=== PATIENT | male | born 1975 | race Caucasian/White ===

== ENCOUNTER 2017-02-08 18:49 | Inpatient (IN) | payer OTHER ==
[~2017-02-08] VITALS: Ht 172.7 cm; Wt 140.0 kg
[2017-02-08] MEDS ORDERED: SODIUM CHLORIDE 0.9% 1L BAG IV* STA (19:03)
[2017-02-08] MEDS ORDERED: ACETAMINOPHEN 325 MG TAB PO STA (19:03)
[2017-02-08] MEDS ORDERED: CEFEPIME 2GM/50 ML (PMX) 50 ML IVPB STA (19:03)
[2017-02-08] MEDS ORDERED: VANCOMYCIN 1 GM (PMX) 250 ML IVPB ONE (19:30)
[2017-02-08 19:46] LABS: ABNORMAL IP MESSAGE 1; HEMATOCRIT 40.5 % (42.0-52.0); HEMOGLOBIN 12.6 g/dl (14.0-18.0); MEAN CORPUSCULAR HEMOGLOBIN 25.6 pg (29.0-33.0); MEAN CORPUSCULAR HGB CONC 31.1 g/dl (32.0-37.0); MEAN CORPUSCULAR VOLUME 82.2 fl (82.0-101.0); MEAN PLATELET VOLUME 10.6 fl (7.4-10.4); PLATELET COUNT 139 10^3/UL (140-415); POSITIVE DIFF @See below; RED BLOOD COUNT 4.93 10^6/ul (4.70-6.10); RED CELL DISTRIBUTION WIDTH 17.5 % (11.5-14.5); WHITE BLOOD COUNT 11.3 10^3/ul (4.8-10.8)
[2017-02-08 20:03] LABS: ADD UMIC YES; UR ASCORBIC ACID NEGATIVE (NEGATIVE); UR BACTERIA FEW /HPF (NONE SEEN); UR BILIRUBIN (Dip) NEGATIVE (NEGATIVE); UR BLOOD (Dip) 3+ mg/dL (NEGATIVE); UR CLARITY CLOUDY (CLEAR); UR COLOR YELLOW (YELLOW); UR GLUCOSE (Dip) NEGATIVE (NEGATIVE); UR KETONES (Dip) NEGATIVE (NEGATIVE); UR LEUKOCYTE ESTERASE (Dip) 3+ Leu/ul (NEGATIVE); UR NITRITE (Dip) NEGATIVE (NEGATIVE); UR RBC 8 /HPF (0-5); UR SPECIFIC GRAVITY (Dip) 1.008 (1.003-1.030); UR TOTAL PROTEIN (Dip) 1+ mg/dl (NEGATIVE); UR UROBILINOGEN (Dip) NEGATIVE (NEGATIVE)
[2017-02-08 20:09] LABS: INR 1.2; PROTIME 15.3 Sec (12.2-14.2); PT RATIO 1.2
--- NOTE | 2017-02-08 20:09 | RADRPT ---
PROCEDURE: XR Chest. CLINICAL INDICATION: Sepsis TECHNIQUE: Anterior chest x-ray. COMPARISON: None. FINDINGS: The lungs are clear. No pleural effusion identified. There is no evidence of pneumothorax. The cardiomediastinal silhouette is unremarkable. The soft tissues are normal. Osseous structures are unremarkable. IMPRESSION: 1. No acute disease is seen in the chest. RPTAT: HLDM .Too Yoder MD, MD Date Time Electronically viewed and signed by .Too Yoder MD, on 02/08/2017 20:09 .M/
[2017-02-08 20:10] LABS: PARTIAL THROMBOPLASTIN TIME 33.2 Sec (25.0-35.0)
[2017-02-08 20:12] LABS: ALBUMIN 3.5 g/dl (3.3-4.9); ALBUMIN/GLOBULIN RATIO 1.12; BILIRUBIN,INDIRECT 0.5 mg/dl (0-1.1); BILIRUBIN,TOTAL 0.5 mg/dl (0.2-1.3); CALCIUM 8.6 mg/dl (8.4-10.2); CREATININE 1.41 mg/dl (0.61-1.24); POTASSIUM 4.4 mmol/L (3.5-5.1); TOTAL PROTEIN 6.6 g/dl (6.1-8.1)
[2017-02-08 20:23] LABS: TROPONIN-I 0.029 ng/ml (0.00-0.12)
[2017-02-08 20:24] LABS: EOSINOPHILS % (M) 3 % (0-7); MONOCYTES % (M) 2 % (0-11); PLATELET ESTIMATE NORMAL
[2017-02-08] MEDS ORDERED: IBUPROFEN 800 MG TAB PO ONE (21:00)
[2017-02-08] MEDS ORDERED: ONDANSETRON 4 MG INJ IV PRN ×2 (21:30→22:30)
[2017-02-08] MEDS ORDERED: ACETAMINOPHEN 325 MG TAB PO PRN (21:30)
--- NOTE | 2017-02-08 21:30 | ERA ---
ER Documentation Chief Complaint Date/Time DATE: 02/08/17 TIME: 21:27 Chief Complaint weakness and shivers x today HPI Patient is a 42-year-old male with psoriasis and gout who presents with fever. He was brought in by ambulance. He tried ibuprofen and TheraFlu. His symptoms started yesterday. He had severe chills. He denies any cough. He has no urinary symptoms. Upon review of old medical records this is the patient's first visit to the emergency department. He does not currently have a primary doctor. He is currently living at a group home house. ROS All systems reviewed and are negative except as per history of present illness. Allergies Allergies: Coded Allergies: No Known Allergy (Unverified , 02/08/17) FmHx Family History: diabetes Physical Exam Vitals Vital Signs Date Time Temp Pulse Resp B/P Pulse Ox O2 Delivery O2 Flow Rate FiO2 02/08/17 20:45 101.1 115 20 105/54 95 Room Air 02/08/17 20:11 102.1 124 25 97/55 96 Room Air 02/08/17 18:59 104.8 164 19 113/56 100 Physical Exam Const: Moderate distress Head: Atraumatic Eyes: Normal Conjunctiva ENT: Normal External Ears, Nose and Mouth. Neck: Full range of motion..~ No meningismus. Resp: Clear to auscultation bilaterally Cardio: Tachycardic rate without murmur Abd: Soft, non tender, non distended. Normal bowel sounds Skin: No petechiae or rashes Back: No midline or flank tenderness Ext: No cyanosis, or edema Neur: Awake and alert, generalized weakness Psych: Normal Mood and Affect Result Diagram: 02/08/17192402/08/171924 Results 24 hrs Laboratory Tests Test 02/08/17 19:20 02/08/17 19:25 Urine Color YELLOW Urine Clarity CLOUDY Urine pH 5.0 Urine Specific Peggs 1.008 Urine Ketones NEGATIVEmg/dL Urine Nitrite NEGATIVEmg/dL Urine Bilirubin NEGATIVEmg/dL Urine Urobilinogen NEGATIVEmg/dL Urine Leukocyte Esterase 3+Rita/ul Urine Microscopic RBC 8/HPF Urine Microscopic WBC > 182/HPF Urine Bacteria FEW/HPF Urine Hemoglobin 3+mg/dL Urine Glucose NEGATIVEmg/dL Urine Total Protein 1+mg/dl White Blood Count 11.310^3/ul Red Blood Count 4.9310^6/ul Hemoglobin 12.6g/dl Hematocrit 40.5% Mean Corpuscular Volume 82.2fl Mean Corpuscular Hemoglobin 25.6pg Mean Corpuscular Hemoglobin Concent 31.1g/dl Red Cell Distribution Width 17.5% Platelet Count 64410^3/UL Mean Platelet Volume 10.6fl Segmented Neutrophils % (Manual) 94% Lymphocytes % (Manual) 1% Monocytes % (Manual) 2% Eosinophils % (Manual) 3% Nucleated Red Blood Cells % 0.0/100WBC Absolute Lymphocytes (Manual) 0.110^3/ul Absolute Monocytes (Manual) 0.210^3/ul Smudge Cells % 69% Platelet Estimate NORMAL Prothrombin Time 15.3Sec Prothrombin Time Ratio 1.2 INR International Normalized Ratio 1.20 Activated Partial Thromboplast Time 33.2Sec Sodium Level 140mmol/L Potassium Level 4.4mmol/L Chloride Level 102mmol/L Carbon Dioxide Level 24mmol/L Anion Gap 18 Blood Urea Nitrogen 26mg/dl Creatinine 1.41mg/dl Glucose Level 94mg/dl Lactic Acid Level 4.4mmol/L Calcium Level 8.6mg/dl Total Bilirubin 0.5mg/dl Direct Bilirubin 0.00mg/dl Indirect Bilirubin 0.5mg/dl Aspartate Amino Transf (AST/SGOT) 25IU/L Alanine Aminotransferase (ALT/SGPT) 60IU/L Alkaline Phosphatase 77IU/L Troponin I 0.029ng/ml Total Protein 6.6g/dl Albumin 3.5g/dl Globulin 3.10g/dl Albumin/Globulin Ratio 1.12 Current Medications Medications (Trade) Dose Ordered Sig/Ashlee Route PRN Reason Start Time Stop Time Status Last Admin Dose Admin Sodium Chloride (NS) 4,340 ml BOLUS OVER 2 HOURS STAT IV* 02/08/17 19:03 02/08/17 19:05 DC 02/08/17 19:31 Acetaminophen 650 mg 650 mg ONCE STAT PO 02/08/17 19:03 02/08/17 19:05 DC 02/08/17 19:20 Cefepime HCl 50 ml @ 100 mls/hr ONCE STAT IVPB 02/08/17 19:03 02/08/17 19:32 DC 02/08/17 19:31 Vancomycin HCl (Vancocin) 250 ml @ 125 mls/hr ONCE ONCE IVPB 02/08/17 19:30 7/29/17 21:29 02/08/17 20:19 Ibuprofen (Motrin) 800 mg ONCE ONCE PO 02/08/17 21:00 02/08/17 21:01 DC 02/08/17 20:47 Ondansetron HCl (Zofran Inj) 4 mg ER BRIDGE PRN IV NAUSEA AND/OR VOMITING 02/08/17 21:30 02/09/17 21:29 Acetaminophen (Tylenol Tab) 650 mg ER BRIDGE PRN PO MILD PAIN/FEVER 02/08/17 21:30 02/09/17 21:29 Procedures/MDM EKG read by me: Rate/Rhythm: Sinus tachycardia Intervals: Normal Impression: Sinus tachycardia without ischemia Chest x-ray shows no obvious pneumonia per radiology. Admit MDM: Patient's infectious symptoms have not stabilized and the patient is at risk of rapid decompensation. The patient will be admitted for careful hydration, antibiotic therapy, and infectious source control. Severe Sepsis criteria: Infectious source: Pyelonephritis End organ damage indicated by: Lactate greater than 2 Sepsis Management: Time of recognition of sepsis: Upon arrival Within 3 hours of recognition: Blood cultures x 2 before broad-spectrum antibiotics: Yes 30 ml/kg NS bolus Completed Initial lactate 4.4 Repeat lactate pending Time of recognition of septic shock: 1924 Septic Shock Assessment: Any lactic acid > 4.0 yes Persistent hypotension (SBP < 90 or 40 mmHg drop, MAP < 65) despite 30 mL/kg IV fluid bolus No Volume Re-assessment for Septic Shock (post 30 ml/kg bolus): Temp 101.1, BP 105/54, HR 115, RR 20, Pox 95% Heart tachycardic rate Lungs No crackles Skin Warm & dry Cap Refill Less than 2 seconds Peripheral pulses Radially present Persistent Hypotension Treatment: Comfort care No Central line Not Required Vasopressor started Not required I considered further perfusion assessment with CVP measurement, SCVO2, bedside ultrasound volume assessment, passive leg raise, trial of further fluid bolus. And proceeded with 30 ml/kg fluid bolus of NSS, broad spectrum antibiotics, and admission. Accepting Care Team Current data and ongoing care discussed. Admitting Physician: Dr. Espinoza as the patient has [facility] insurance loss assessor(s): None Outstanding Data: Culture results and repeat lactic acid Critical Care: Critical care time 35 minutes excluding all billable procedures Emergent fluid management while maintaining close respiratory support. Provision of immediate and broad-spectrum antibiotic therapy. Simultaneous assessment for possible sources in order to direct targeted therapy. Consideration for invasive and chemical support to prevent cardiopulmonary collapse. Departure Diagnosis: Primary Impression: Septic shock Additional Impressions: Acute weakness Pyelonephritis Condition: Serious JANET IZAGUIRRE MD Feb 08, 2017 21:30
[2017-02-08 22:04] VITALS: TEMP 99
[2017-02-08] MEDS ORDERED: ACETAMINOPHEN 650 MG SUPP PR PRN (22:30)
[2017-02-08] MEDS ORDERED: BISACODYL (EC) 5 MG TAB PO PRN (22:30)
[2017-02-08] MEDS ORDERED: MAGNESIUM HYDROXIDE 30ML CUP PO PRN (22:30)
[2017-02-08] MEDS ORDERED: NACL 0.9% 3 ML SYG IV SCH (22:30)
[2017-02-08] MEDS ORDERED: DOCUSATE SODIUM 100 MG CAP PO PRN (22:30)
[2017-02-08 22:35] VITALS: BP 110/70; PULSE 107; RESP 20; Ht 172.7 cm; Wt 140.0 kg
[2017-02-08 23:59] VITALS: BP 100/71; RESP 19
[2017-02-09] VITALS (12 sets, daily range): BP systolic 108–170; BP diastolic 60–90; PULSE 80–109; RESP 16–19
[2017-02-09] MEDS: PIPER-TAZO 3.375 GM IV (PMX) 100 ML IVPB SCH ×4 (05:47→21:08)
[2017-02-09] MEDS: HYDROCODONE/APAP (5/325) TAB PO PRN ×3 (05:47→21:09)
[2017-02-09] MEDS: NS + KCL 20 MEQ 1,000 ML IV SCH ×4 (06:49→23:18)
[2017-02-09] MEDS: PANTOPRAZOLE 40 MG INJ IV SCH (08:34)
[2017-02-09] MEDS: ACETAMINOPHEN 325 MG TAB PO PRN ×2 (08:34→17:34)
--- NOTE | 2017-02-09 10:25 | HP ---
Date/Time of Note Date/Time of Note DATE: 02/09/17 TIME: 10:15 Assessment/Plan VTE Prophylaxis VTE Prophylaxis Intervention: SCD's Lines/Catheters IV Catheter Type (from Nrsg): Peripheral IV Assessment/Plan Chief Complaint/Hosp Course 1. Sepsis 2. Possible viral gastroenteritis. 3. UTI 4. Gout 5. Psoriasis 4. Psoriatic gout 5. Morbid obesity 6. Hypertension, uncontrolled 7. Anxiety 8. Hx nicotine dependence Problems: Assessment/Plan 1. Continue IV fluids and A/b 2. ID consult dr Frost 3. Clear liquid diet 4. Pain control 5. Start on antianxiety meds HPI/ROS Admit Date/Time Admit Date/Time Feb 08, 2017 at 21:14 Hx of Present Illness 42-year-old male was brought to ER on 02/08/17 by ambulance. He had symptoms of diarrhea, chills and fever for 2 days. He tried ibuprofen and TheraFlu. Pt is recently released from senior care and currently living at a [facility] house. ROS Constitutional: chills, febrile ENT: no complaints Respiratory: cough, no complaints, other, pain, pleuritic pain, shortness of breath, sputum, wheezing Cardiovascular: chest pain, edema, lightheadedness, palpitations, No no complaints, No orthopenea, No other, No paroxysmal nocturnal dyspnea Gastrointestinal: blood, constipation, decreased appetite, diarrhea, flatus, nausea, no complaints, other, pain, passing stool, vomiting Genitourinary: discharge, dysuria, flank pain, No bleeding, No hematuria, No no complaints, No other Musculoskeletal: back pain, bone/joint pain, neck pain, no complaints, other, restricted range of motion (chronic), swelling Skin: rash (due to psoriasis) Neurologic: confusion, dizziness, focal-weakness, headache, no complaints, other, seizure, syncope Endocrine: polyuria, No dry skin, No no complaints, No other, No polydypsia, No temp intolerance, No weight change Lymphatic: adenopathy, No lymphadema, No no complaints, No other, No tender nodes Psychological: anxiety, No depression, No nl mood/affect, No no complaints, No other, No suicidal Immunologic: immunodeficiency, no complaints, other, pruritis, rhinitis, urticaria PMH/Family/Social Past Medical History reports Psoriasis, Gout, and associated arthritis Past Surgical History Past Surgical Hx: no surgical history Family History Significant Family History: other (gout both maternal and praternal grandparents) Social History Alcohol Use: none Smoking Status: Former smoker Drug Use: none Exam/Review of Systems Vital Signs Vitals Vital Signs Date Time Temp Pulse Resp B/P Pulse Ox O2 Delivery O2 Flow Rate FiO2 02/09/17 08:38 101.8 108 18 170/80 93 159/81 02/08/17 22:35 Room Air Intake and Output 02/08/17 02/08/17 02/09/17 15:00 23:00 07:00 Intake Total 600 ml Output Total 700 ml Balance -100 ml Exam Constitutional: alert, distress, oriented Psych: anxiety Head: atraumatic, normocephalic Eyes: EOMI, nl conjunctiva ENMT: nl external ears & nose, nl nasal mucosa & septum Neck: non-tender, supple Respiratory: clear to auscultation Cardiovascular: other (tachycardia), regular rate and rhythm Gastrointestinal: distended, other, rebound or guarding, soft Genitourinary - Male: nl penis, nl scrotum Musculoskeletal: muscle weakness, range of motion (decreased both hips and knees) Extremities: normal pulses Neurological: DERMATOLOGY TECHNICIAN II-XII intact Skin: other (psoriasis ) Labs Result Diagram: 02/08/17192402/08/171924 Medications Medications Current Medications Potassium Chloride/Sodium Chloride (NS-KCl 20 Meq) 1,000 ml @ 125 mls/hr Q8H IV Last administered on 02/09/17 06:49; Admin Dose 125 MLS/HR; Start 02/08/17 at 22:25 Ondansetron HCl (Zofran Inj) 4 mg Q6H PRN IV NAUSEA AND/OR VOMITING; Start at 22:30 Acetaminophen (Tylenol Tab) 650 mg Q6H PRN PO PAIN LEVEL 1-3 OR FEVER Last administered on 02/09/17 08:34; Admin Dose 650 MG; Start 02/08/17 at 22:30 Acetaminophen (Tylenol Supp) 650 mg Q6H PRN [place] PAIN LEVEL 1-3 OR FEVER; Start 02/08/17 at 22:30 Acetaminophen/ Hydrocodone Bitart ([place] (5/325)) 1 tab Q6H PRN PO MODERATE PAIN LEVEL 4-6 Last administered on 02/09/17 05:47; Admin Dose 1 TAB; Start at 22:30 Docusate Sodium (Colace) 100 mg Q12H PRN PO CONSTIPATION; Start 02/08/17 at 22: 30 Magnesium Hydroxide (Milk Of Mag) 30 ml DAILY PRN PO CONSTIPATION; Start at 22:30 Bisacodyl (Dulcolax) 5 mg DAILY PRN PO CONSTIPATION; Start 02/08/17 at 22:30 Pantoprazole 40 mg 40 mg DAILY IV Last administered on 02/09/17 08:34; Admin Dose 40 MG; Start 02/09/17 at 09:00 Piperacillin Sod/ Tazobactam Sod (Zosyn 3.375gm/ 100 ml (Pmx)) 100 ml @ 200 mls /hr Q8 IVPB Last administered on 02/09/17 05:47; Admin Dose 200 MLS/HR; Start 02/08/17 at 23:00 MARLINE FIELDS Feb 09, 2017 10:25
[2017-02-09] MEDS: FLUOXETINE 10 MG CAP PO SCH (11:30)
[2017-02-10] VITALS (11 sets, daily range): BP systolic 111–158; BP diastolic 55–87; PULSE 61–86; RESP 19–20
[2017-02-10] MEDS: ACETAMINOPHEN 325 MG TAB PO PRN (02:06)
[2017-02-10] MEDS: HYDROCODONE/APAP (5/325) TAB PO PRN ×3 (03:09→23:22)
[2017-02-10] MEDS: PIPER-TAZO 3.375 GM IV (PMX) 100 ML IVPB SCH ×3 (06:06→21:57)
[2017-02-10] MEDS: NS + KCL 20 MEQ 1,000 ML IV SCH ×3 (06:07→23:22)
[2017-02-10 07:35] LABS: ABNORMAL IP MESSAGE 1; BASOPHILS % 0.3 % (0.0-2.0); EOSINOPHILS % 0.3 % (0.0-7.0); HEMATOCRIT 35.3 % (42.0-52.0); LYMPHOCYTES # 0.6 10^3/ul (0.8-2.9); LYMPHOCYTES % 8.7 % (15.0-51.0); MEAN CORPUSCULAR HEMOGLOBIN 25.3 pg (29.0-33.0); MEAN CORPUSCULAR HGB CONC 31.2 g/dl (32.0-37.0); MEAN CORPUSCULAR VOLUME 81.3 fl (82.0-101.0); MEAN PLATELET VOLUME 11.4 fl (7.4-10.4); MONOCYTE # 0.5 10^3/ul (0.3-0.9); MONOCYTES % 7.3 % (0.0-11.0); NEUTROPHIL # 5.4 10^3/ul (1.6-7.5); NEUTROPHILS % 82.3 % (39.0-77.0); PLATELET COUNT 108 10^3/UL (140-415); POSITIVE DIFF @See below; RED BLOOD COUNT 4.34 10^6/ul (4.70-6.10); RED CELL DISTRIBUTION WIDTH 17.2 % (11.5-14.5); WHITE BLOOD COUNT 6.6 10^3/ul (4.8-10.8)
[2017-02-10 07:55] LABS: CALCIUM 8.4 mg/dl (8.4-10.2); CREATININE 1.15 mg/dl (0.61-1.24); POTASSIUM 4.7 mmol/L (3.5-5.1)
[2017-02-10] MEDS: FLUOXETINE 10 MG CAP PO SCH (09:06)
[2017-02-10] MEDS: PANTOPRAZOLE 40 MG INJ IV SCH (09:06)
--- NOTE | 2017-02-10 10:42 | CONS ---
DATE OF ADMISSION: 02/08/2017 DATE OF CONSULTATION: 02/09/2017 REASON FOR CONSULTATION: Antibiotic management. HISTORY OF PRESENT ILLNESS: Cristobal Laureano is a 42-year-old male who comes to the emergency room on 02/08/2017 with symptoms of diarrhea, chills and fever for 2 days. He was taking ibuprofen and TheraFlu, and was recently released from sn[facility] and living in a assisted house. PAST MEDICAL HISTORY: 1. Gout. 2. Psoriasis. 3. Morbid obesity. 4. Hypertension. 5. Anxiety. 6. Nicotine dependence. LABORATORY: On admission, his white count was 11.3, hemoglobin and hematocrit of 12.6 and 40.5, platelet count 139,000. BUN/creatinine 26/1.4. Urine culture shows gram-negative rods from 02/08/2017. Urine showed 3+ leukocyte esterase and greater than 182 white cells per high-powered field. Patient is currently on Zosyn and was on cefepime. Chest x-ray; no acute disease seen in the chest. PAST SURGICAL HISTORY: Operations as outlined. FAMILY HISTORY: Noncontributory. SOCIAL HISTORY: He does not smoke, drink, or abuse drugs. ALLERGIES: NONE TO PENICILLIN, SULFA, OR FOODS. MEDICATION: Per chart. REVIEW OF SYSTEMS: As per HPI. The patient was a former smoker. PHYSICAL EXAMINATION: SKIN: The skin has areas of psoriasis. HEENT: Within normal limits. NECK: Supple. Lymph nodes nonpalpable. CHEST: Decreased breath sounds at the bases. HEART: Tachycardic, regular rhythm. ABDOMEN: Soft, distended, nontender, without hepatosplenomegaly or masses. EXTREMITIES: Decreased range of motion in both hips and knees. RECTAL/GENITAL: Deferred. NEUROLOGICAL: No focal neurological abnormalities. IMPRESSION: The patient presents now with what appears to be sepsis. He has gram-negative rods in his urine. He is going to be continued on the Zosyn until we get reports back to tailor his antibiotic therapy. I will dictate my findings to the hospitalist. Dictated By: Artemio Frost MD JD/wes/antonio /Document#: [id number]
--- NOTE | 2017-02-10 17:33 | PN ---
Date/Time of Note Date/Time of Note DATE: 02/10/17 TIME: 17:31 Assessment/Plan VTE Prophylaxis VTE Prophylaxis Intervention: other Lines/Catheters IV Catheter Type (from Nrsg): Peripheral IV Assessment/Plan Chief Complaint/Hosp Course A/P SEPSIS UTI HEADACHE ANEMIA PLAN ANTIBIOTIC Problems: Subjective 24 Hr Interval Summary Subjective hx not possible: other (HEADACHE+) Cardiovascular: no complaints Gastrointestinal: no complaints Exam/Review of Systems Vital Signs Vitals Vital Signs Date Time Temp Pulse Resp B/P Pulse Ox O2 Delivery O2 Flow Rate FiO2 02/10/17 16:10 61 02/10/17 15:27 99.7 20 111/55 98 02/08/17 22:35 Room Air Intake and Output 02/09/17 02/09/17 02/10/17 15:00 23:00 07:00 Intake Total 1400 ml 1000 ml Balance 1400 ml 1000 ml Exam ENMT: nl external ears & nose Neck: supple Respiratory: clear to auscultation Cardiovascular: regular rate and rhythm Gastrointestinal: soft Musculoskeletal: nl extremities to inspection Extremities: normal pulses Results Result Diagram: 02/10/17 0657 02/10/17 0657 Results 24 hrs Laboratory Tests Test 02/10/17 06:57 02/10/17 10:00 White Blood Count 6.6 # Red Blood Count 4.34 L Hemoglobin 11.0 L Hematocrit 35.3 L Mean Corpuscular Volume 81.3 L Mean Corpuscular Hemoglobin 25.3 L Mean Corpuscular Hemoglobin Concent 31.2 L Red Cell Distribution Width 17.2 H Platelet Count 108 #L Mean Platelet Volume 11.4 H Neutrophils % 82.3 H Lymphocytes % 8.7 L Monocytes % 7.3 Eosinophils % 0.3 Basophils % 0.3 Nucleated Red Blood Cells % 0.0 Neutrophils # 5.4 Lymphocytes # 0.6 L Monocytes # 0.5 Eosinophils # 0.0 Basophils # 0.0 Nucleated Red Blood Cells # 0.0 Sodium Level 136 Potassium Level 4.7 Chloride Level 101 Carbon Dioxide Level 25 Anion Gap 15 Blood Urea Nitrogen 12 # Creatinine 1.15 Glucose Level 115 Calcium Level 8.4 TB Skin Test Induration Pending TB Skin Test Administer Date 7300720 TB Skin Test Administer Time 0950 TB Skin Test Injection Site Left Lower Forearm Medications Medications Current Medications Potassium Chloride/Sodium Chloride (NS-KCl 20 Meq) 1,000 ml @ 125 mls/hr Q8H IV Last administered on 02/10/17 16:28; Admin Dose 125 MLS/HR; Start 02/08/17 at 22:25 Ondansetron HCl (Zofran Inj) 4 mg Q6H PRN IV NAUSEA AND/OR VOMITING; Start at 22:30 Acetaminophen (Tylenol Tab) 650 mg Q6H PRN PO PAIN LEVEL 1-3 OR FEVER Last administered on 02/10/17 02:06; Admin Dose 650 MG; Start 02/08/17 at 22:30 Acetaminophen (Tylenol Supp) 650 mg Q6H PRN [place] PAIN LEVEL 1-3 OR FEVER; Start 02/08/17 at 22:30 Acetaminophen/ Hydrocodone Bitart ([place] (5/325)) 1 tab Q6H PRN PO MODERATE PAIN LEVEL 4-6 Last administered on 02/10/17 13:46; Admin Dose 1 TAB; Start at 22:30 Docusate Sodium (Colace) 100 mg Q12H PRN PO CONSTIPATION; Start 02/08/17 at 22: 30 Magnesium Hydroxide (Milk Of Mag) 30 ml DAILY PRN PO CONSTIPATION; Start at 22:30 Bisacodyl (Dulcolax) 5 mg DAILY PRN PO CONSTIPATION; Start 02/08/17 at 22:30 Pantoprazole 40 mg 40 mg DAILY IV Last administered on 02/10/17 09:06; Admin Dose 40 MG; Start 02/09/17 at 09:00 Piperacillin Sod/ Tazobactam Sod (Zosyn 3.375gm/ 100 ml (Pmx)) 100 ml @ 200 mls /hr Q8 IVPB Last administered on 02/10/17 14:47; Admin Dose 200 MLS/HR; Start 02/08/17 at 23:00 Fluoxetine HCl (Prozac) 10 mg DAILY PO Last administered on 02/10/17 09:06; Admin Dose 10 MG; Start 02/09/17 at 11:30 Hydralazine HCl (Apresoline) 10 mg Q8H PRN PO SBP above 160; Start 02/09/17 at 10:30 DINA VIDAL MD Feb 10, 2017 17:32
[2017-02-10] MEDS ORDERED: TOPIRAMATE 25 MG TAB PO ONE (18:30)
--- NOTE | 2017-02-10 20:03 | CONS ---
Date/Time of Note Date/Time of Note DATE: 02/10/17 TIME: 19:34 Assessment/Plan Assessment/Plan Chief Complaint/Hosp Course ID PROGRESS NOTE CURRENT ABX: DAY #2 =>Zosyn (started late PM 02/08) s/p Vanco IV + Cefepime x1 in ED late pm 02/08 24H INTERVAL SUMMARY * Feels better, headache today given Tylenol, fevers resolved, VSS * Still having diarrhea -- believes due to food he ate in [facility]itentiary * (+)GNR BCX=> (+)GNR Urosepsis * URINE CULTURE Final Organism 1 ESCHERICHIA COLI COLONY COUNT >100,000 CFU/ml E COLI M.I.C. RX --------- --- AMPICILLIN <=2 S CEFAZOLIN S CEFOTAXIME S CIPROFLOXACIN <=0.25 S GENTAMICIN <=1 S LEVOFLOXACIN <=0.12 S NITROFURANTOIN <=16 S TOBRAMYCIN <=1 S TRIMETHOPRIM/SULFAMETHOXAZOLE <=20 S Physical examination: 42 yo super morbid obese M, VSS, NAD HEENT: Unremarkable CHEST: Equal chest rise bilaterally without dyspnea on observation CV: Radial pulse RRR ABD: Obese body habitus makes exam difficult : Deferred EXT: Warm, no cyanosis SKIN: No diaphoresis, psoriatic rash areas = chronic ID ASSESSMENT 42 yo super morbid obese M admit with: 1. Acute GNR Sepsis w/fevers 104.8, leukocytosis, tachycardia @168, + lactic acidosis 4.4 => IMPROVING * Low grade temps, WBC normalized, VSS * 02/08 BCx (+)GNR -> Final ID still pending 2. Complicated GNR E.Coli UTI/Pyelonephritis -> spicer sensitive to all ABX 3. s/p acute gastroenteritis associated w/diarrhea prior to admission => still having loose stools and headache * He believes he ate something bad in penitentiary -> will check for hepatitis A and stool cultures, ova/para, C.Diff 4. HTN 5. Gout 6. Psoriasis 7. Hx nicotine dependence 8. Psych/social disorder NOS: (+)Anxiety, s/p recent incarceration (-)HIV/HCV/HBV during admission to incarceration facility 12 mos ago, w/(-)TB screening at that time CURRENT ABX: CURRENT ABX: DAY #2 =>Zosyn (started late PM 02/08) s/p Vanco IV + Cefepime x1 in ED late pm 02/08 ID RECOMMENDATIONS 1. Best to wait for final ID of the GNR growing in the Blood Cx prior to final ABX recommendations. 2. If GNR in BCx is also sensitive to Quinolones; then anticipate DC the patient on Levaquin 750mg po daily to complete 14 days coverage for (+)blood cx. * Indication for high-dose Levaquin is super morbid obesity; alternative high dose Cipro Q12 H 3. Patient may DC home on PO ABX as above when afebrile 48H and GNR BCx has been confirmed sensitive to Quinolone ABX. 4. He believes he ate something bad in penitentiary -> will check for hepatitis A and stool cultures, ova/para, C.Diff 5. POST INCARCERATION HIGH RISK POPULATION SCREENINGS FOR ID * PPD screening ordered/placed 02/10/17 for SCREENING for exposure to TB while in penitentiary ONLY. NO current evidence of TB. * If (+) recommend initiation for Latent TB prophy as OP * Patient gives permission to retest for HIV/HCV s/p penitentiary; however he denies sharing needles during penitentiary, no hx of IVDU, no sex in penitentiary, he is to same spouse, he has tattoos done in a professional shop. I advised him HIV/ HCV not likely if no risk in past 12 month since last screening...he tells me "It is best to test me for everything for peace of mind." Patient gives verbal consent to test for HIV. . Problems: Consultation Date/Type/Reason Admit Date/Time Feb 08, 2017 at 21:14 Initial Consult Date Exam/Review of Systems Vital Signs Vitals Vital Signs Date Time Temp Pulse Resp B/P Pulse Ox O2 Delivery O2 Flow Rate FiO2 02/10/17 16:10 61 02/10/17 15:27 99.7 20 111/55 98 02/08/17 22:35 Room Air Intake and Output 02/09/17 02/09/17 02/10/17 15:00 23:00 07:00 Intake Total 1400 ml 1000 ml Balance 1400 ml 1000 ml Results Result Diagram: 02/10/17 0657 02/10/17 0657 Results 24 hrs Laboratory Tests Test 02/10/17 06:57 02/10/17 10:00 White Blood Count 6.6 # Red Blood Count 4.34 L Hemoglobin 11.0 L Hematocrit 35.3 L Mean Corpuscular Volume 81.3 L Mean Corpuscular Hemoglobin 25.3 L Mean Corpuscular Hemoglobin Concent 31.2 L Red Cell Distribution Width 17.2 H Platelet Count 108 #L Mean Platelet Volume 11.4 H Neutrophils % 82.3 H Lymphocytes % 8.7 L Monocytes % 7.3 Eosinophils % 0.3 Basophils % 0.3 Nucleated Red Blood Cells % 0.0 Neutrophils # 5.4 Lymphocytes # 0.6 L Monocytes # 0.5 Eosinophils # 0.0 Basophils # 0.0 Nucleated Red Blood Cells # 0.0 Sodium Level 136 Potassium Level 4.7 Chloride Level 101 Carbon Dioxide Level 25 Anion Gap 15 Blood Urea Nitrogen 12 # Creatinine 1.15 Glucose Level 115 Calcium Level 8.4 TB Skin Test Induration Pending TB Skin Test Administer Date [id number] TB Skin Test Administer Time 0950 TB Skin Test Injection Site Left Lower Forearm Medications Medications Current Medications Potassium Chloride/Sodium Chloride (NS-KCl 20 Meq) 1,000 ml @ 125 mls/hr Q8H IV Last administered on 02/10/17 16:28; Admin Dose 125 MLS/HR; Start 02/08/17 at 22:25 Ondansetron HCl (Zofran Inj) 4 mg Q6H PRN IV NAUSEA AND/OR VOMITING; Start at 22:30 Acetaminophen (Tylenol Tab) 650 mg Q6H PRN PO PAIN LEVEL 1-3 OR FEVER Last administered on 02/10/17 02:06; Admin Dose 650 MG; Start 02/08/17 at 22:30 Acetaminophen (Tylenol Supp) 650 mg Q6H PRN [place] PAIN LEVEL 1-3 OR FEVER; Start 02/08/17 at 22:30 Acetaminophen/ Hydrocodone Bitart ([place] (5/325)) 1 tab Q6H PRN PO MODERATE PAIN LEVEL 4-6 Last administered on 02/10/17 13:46; Admin Dose 1 TAB; Start at 22:30 Docusate Sodium (Colace) 100 mg Q12H PRN PO CONSTIPATION; Start 02/08/17 at 22: 30 Magnesium Hydroxide (Milk Of Mag) 30 ml DAILY PRN PO CONSTIPATION; Start at 22:30 Bisacodyl (Dulcolax) 5 mg DAILY PRN PO CONSTIPATION; Start 02/08/17 at 22:30 Pantoprazole 40 mg 40 mg DAILY IV Last administered on 02/10/17 09:06; Admin Dose 40 MG; Start 02/09/17 at 09:00 Piperacillin Sod/ Tazobactam Sod (Zosyn 3.375gm/ 100 ml (Pmx)) 100 ml @ 200 mls /hr Q8 IVPB Last administered on 02/10/17 14:47; Admin Dose 200 MLS/HR; Start 02/08/17 at 23:00 Fluoxetine HCl (Prozac) 10 mg DAILY PO Last administered on 02/10/17 09:06; Admin Dose 10 MG; Start 02/09/17 at 11:30 Hydralazine HCl (Apresoline) 10 mg Q8H PRN PO SBP above 160; Start 02/09/17 at 10:30 WAN LARA NP Feb 10, 2017 19:44
[2017-02-11] VITALS (13 sets, daily range): BP systolic 121–198; BP diastolic 59–108; PULSE 58–86; RESP 16–20
[2017-02-11] MEDS: HYDROCODONE/APAP (5/325) TAB PO PRN ×2 (05:48→16:38)
[2017-02-11] MEDS: PIPER-TAZO 3.375 GM IV (PMX) 100 ML IVPB SCH ×3 (05:48→22:34)
[2017-02-11] MEDS: NS + KCL 20 MEQ 1,000 ML IV SCH ×3 (05:56→22:36)
[2017-02-11 08:11] LABS: HAAIG REFLEX REFLEX FILED
[2017-02-11 08:16] LABS: WHITE BLOOD COUNT 6.4 10^3/ul (4.8-10.8)
[2017-02-11 08:17] LABS: BASOPHILS % 0.2 % (0.0-2.0); EOSINOPHILS # 0.1 10^3/ul (0.0-0.5); EOSINOPHILS % 0.9 % (0.0-7.0); HEMATOCRIT 33.9 % (42.0-52.0); HEMOGLOBIN 10.6 g/dl (14.0-18.0); LYMPHOCYTES # 0.7 10^3/ul (0.8-2.9); MEAN CORPUSCULAR HEMOGLOBIN 24.9 pg (29.0-33.0); MEAN CORPUSCULAR HGB CONC 31.3 g/dl (32.0-37.0); MEAN CORPUSCULAR VOLUME 79.6 fl (82.0-101.0); MEAN PLATELET VOLUME 11.9 fl (7.4-10.4); MONOCYTE # 0.5 10^3/ul (0.3-0.9); MONOCYTES % 8.3 % (0.0-11.0); NEUTROPHILS % 78.7 % (39.0-77.0); PLATELET COUNT 137 10^3/UL (140-415); RED BLOOD COUNT 4.26 10^6/ul (4.70-6.10); RED CELL DISTRIBUTION WIDTH 17.2 % (11.5-14.5)
[2017-02-11] MEDS: FLUOXETINE 10 MG CAP PO SCH (08:48)
[2017-02-11] MEDS: PANTOPRAZOLE 40 MG INJ IV SCH (08:49)
[2017-02-11 09:26] LABS: HEPATITIS B CORE ANTIBODY NEGATIVE (NEGATIVE)
[2017-02-11] MEDS: NIFEdipine (XL) 60 MG TAB PO SCH (12:44)
--- NOTE | 2017-02-11 15:42 | CONS ---
Date/Time of Note Date/Time of Note DATE: 02/11/17 TIME: 15:24 Assessment/Plan Assessment/Plan Chief Complaint/Hosp Course ID PROGRESS NOTE CURRENT ABX: DAY #3 =>Zosyn (started late PM 02/08) s/p Vanco IV + Cefepime x1 in ED late pm 02/08 * 02/11/17 0723 02/10/17 0657 24H INTERVAL SUMMARY * Still w/subjective "warm" feeling (+)diaphoresis and headache with ice pack to head that helps. * "not feeling that great -- still feel weak" * Still having loose stools but less -- believes due to food he ate in shelter * (+)GNR BCX=> (+)GNR Urosepsis * URINE CULTURE Final Organism 1 ESCHERICHIA COLI COLONY COUNT >100,000 CFU/ml E COLI M.I.C. RX --------- --- AMPICILLIN <=2 S CEFAZOLIN S CEFOTAXIME S CIPROFLOXACIN <=0.25 S GENTAMICIN <=1 S LEVOFLOXACIN <=0.12 S NITROFURANTOIN <=16 S TOBRAMYCIN <=1 S TRIMETHOPRIM/SULFAMETHOXAZOLE <=20 S Physical examination: 42 yo super morbid obese M, VSS, NAD HEENT: Unremarkable CHEST: Equal chest rise bilaterally without dyspnea on observation CV: Radial pulse RRR ABD: Obese body habitus makes exam difficult : Deferred EXT: Warm, no cyanosis SKIN: No diaphoresis, psoriatic rash areas = chronic ID ASSESSMENT 42 yo super morbid obese M admit with: 1. Acute GNR Sepsis w/fevers 104.8, leukocytosis, tachycardia @168, + lactic acidosis 4.4 => IMPROVING * Low grade temps, WBC normalized, VSS * 02/08 BCx (+)GNR -> E.Coli sensitive to Quinolones 2. Complicated GNR E.Coli UTI/Pyelonephritis ->E.Coli sensitive to Quinolones 3. s/p acute gastroenteritis associated w/diarrhea prior to admission => still having loose stools and headache * He believes he ate something bad in shelter -> will check for hepatitis A and stool cultures, ova/para, C.Diff 4. HTN 5. Gout 6. Psoriasis 7. Hx nicotine dependence 8. Psych/social disorder NOS: (+)Anxiety, s/p recent incarceration (-)HIV/HCV/HBV 02/11/17 PPD screen placed 02/10 late pm CURRENT ABX: CURRENT ABX: DAY #3 =>Zosyn (started late PM 02/08) s/p Vanco IV + Cefepime x1 in ED late pm 02/08 ID RECOMMENDATIONS 1. Patient is improving on current ABX * When cleared for DC home, patient may DC home on high dose Levaquin 750mg po daily to complete 14 days = last day 02/23/16 2. Extensive bedside education today regarding "GNR Urosepsis" all questions answered...culture results provided to patient at his request, patient expresses understanding/agreement with instructions to complete full ABX course upon DC as prescribed. . . Problems: Consultation Date/Type/Reason Admit Date/Time Feb 08, 2017 at 21:14 Exam/Review of Systems Vital Signs Vitals Vital Signs Date Time Temp Pulse Resp B/P Pulse Ox O2 Delivery O2 Flow Rate FiO2 02/11/17 12:14 62 02/11/17 11:34 98.4 18 193/105 97 198/108 02/08/17 22:35 Room Air Intake and Output 02/10/17 02/10/17 02/11/17 15:00 23:00 07:00 Intake Total 1000 ml 600 ml Balance 1000 ml 600 ml Results Result Diagram: 02/11/17 0723 02/10/17 0657 Results 24 hrs Laboratory Tests Test 02/11/17 07:23 White Blood Count 6.4 Red Blood Count 4.26 L Hemoglobin 10.6 L Hematocrit 33.9 L Mean Corpuscular Volume 79.6 L Mean Corpuscular Hemoglobin 24.9 L Mean Corpuscular Hemoglobin Concent 31.3 L Red Cell Distribution Width 17.2 H Platelet Count 137 #L Mean Platelet Volume 11.9 H Neutrophils % 78.7 H Lymphocytes % 11.0 L Monocytes % 8.3 Eosinophils % 0.9 Basophils % 0.2 Nucleated Red Blood Cells % 0.0 Neutrophils # 5.0 Lymphocytes # 0.7 L Monocytes # 0.5 Eosinophils # 0.1 Basophils # 0.0 Nucleated Red Blood Cells # 0.0 Hepatitis B Surface Antigen NEGATIVE Hepatitis B Core Total Antibody NEGATIVE Hepatitis C Antibody NEGATIVE HIV (1&2) Antibody NEGATIVE Medications Medications Current Medications Potassium Chloride/Sodium Chloride (NS-KCl 20 Meq) 1,000 ml @ 125 mls/hr Q8H IV Last administered on 02/11/17 14:12; Admin Dose 125 MLS/HR; Start 02/08/17 at 22:25 Ondansetron HCl (Zofran Inj) 4 mg Q6H PRN IV NAUSEA AND/OR VOMITING; Start at 22:30 Acetaminophen (Tylenol Tab) 650 mg Q6H PRN PO PAIN LEVEL 1-3 OR FEVER Last administered on 02/10/17 02:06; Admin Dose 650 MG; Start 02/08/17 at 22:30 Acetaminophen (Tylenol Supp) 650 mg Q6H PRN [place] PAIN LEVEL 1-3 OR FEVER; Start 02/08/17 at 22:30 Acetaminophen/ Hydrocodone Bitart ([place] (5/325)) 1 tab Q6H PRN PO MODERATE PAIN LEVEL 4-6 Last administered on 02/11/17 05:48; Admin Dose 1 TAB; Start at 22:30 Docusate Sodium (Colace) 100 mg Q12H PRN PO CONSTIPATION; Start 02/08/17 at 22: 30 Magnesium Hydroxide (Milk Of Mag) 30 ml DAILY PRN PO CONSTIPATION; Start at 22:30 Bisacodyl (Dulcolax) 5 mg DAILY PRN PO CONSTIPATION; Start 02/08/17 at 22:30 Pantoprazole 40 mg 40 mg DAILY IV Last administered on 02/11/17 08:49; Admin Dose 40 MG; Start 02/09/17 at 09:00 Piperacillin Sod/ Tazobactam Sod (Zosyn 3.375gm/ 100 ml (Pmx)) 100 ml @ 200 mls /hr Q8 IVPB Last administered on 02/11/17 12:44; Admin Dose 200 MLS/HR; Start 02/08/17 at 23:00 Fluoxetine HCl (Prozac) 10 mg DAILY PO Last administered on 02/11/17 08:48; Admin Dose 10 MG; Start 02/09/17 at 11:30 Hydralazine HCl (Apresoline) 10 mg Q8H PRN PO SBP above 160 Last administered on 02/11/17 08:50; Admin Dose 10 MG; Start 02/09/17 at 10:30 Nifedipine (Procardia Xl) 60 mg DAILY PO Last administered on 02/11/17 12:44; Admin Dose 60 MG; Start 02/11/17 at 13:00 Clonidine (Catapres) 0.1 mg Q6H PO ; Start 02/11/17 at 20:00 WAN LARA NP Feb 11, 2017 15:36
--- NOTE | 2017-02-11 18:16 | PN ---
Date/Time of Note Date/Time of Note DATE: 02/11/17 TIME: 18:15 Assessment/Plan VTE Prophylaxis VTE Prophylaxis Intervention: other Lines/Catheters IV Catheter Type (from Nrs): Peripheral IV Assessment/Plan Chief Complaint/Hosp Course A/P SEPSIS UTI BACTEREMIA E COLI ANEMIA HTN LOW PLATELET HEADACHE ANEMIA PLAN ANTIBIOTIC CK LABS BP MEDS Problems: Subjective 24 Hr Interval Summary ENT: no complaints Respiratory: no complaints Cardiovascular: no complaints Gastrointestinal: no complaints Genitourinary: no complaints Exam/Review of Systems Vital Signs Vitals Vital Signs Date Time Temp Pulse Resp B/P Pulse Ox O2 Delivery O2 Flow Rate FiO2 02/11/17 16:42 86 02/11/17 16:01 99.7 16 132/77 92 02/08/17 22:35 Room Air Intake and Output 02/10/17 02/10/17 02/11/17 15:00 23:00 07:00 Intake Total 1000 ml 600 ml Balance 1000 ml 600 ml Exam Neck: supple Respiratory: clear to auscultation Cardiovascular: regular rate and rhythm Gastrointestinal: soft Musculoskeletal: nl extremities to inspection Extremities: normal pulses Results Result Diagram: 02/11/17 0723 02/10/17 0657 Results 24 hrs Laboratory Tests Test 02/11/17 07:23 White Blood Count 6.4 Red Blood Count 4.26 L Hemoglobin 10.6 L Hematocrit 33.9 L Mean Corpuscular Volume 79.6 L Mean Corpuscular Hemoglobin 24.9 L Mean Corpuscular Hemoglobin Concent 31.3 L Red Cell Distribution Width 17.2 H Platelet Count 137 #L Mean Platelet Volume 11.9 H Neutrophils % 78.7 H Lymphocytes % 11.0 L Monocytes % 8.3 Eosinophils % 0.9 Basophils % 0.2 Nucleated Red Blood Cells % 0.0 Neutrophils # 5.0 Lymphocytes # 0.7 L Monocytes # 0.5 Eosinophils # 0.1 Basophils # 0.0 Nucleated Red Blood Cells # 0.0 Hepatitis B Surface Antigen NEGATIVE Hepatitis B Core Total Antibody NEGATIVE Hepatitis C Antibody NEGATIVE HIV (1&2) Antibody NEGATIVE Medications Medications Current Medications Potassium Chloride/Sodium Chloride (NS-KCl 20 Meq) 1,000 ml @ 125 mls/hr Q8H IV Last administered on 02/11/17t 14:12; Admin Dose 125 MLS/HR; Start 02/08/17 at 22:25 Ondansetron HCl (Zofran Inj) 4 mg Q6H PRN IV NAUSEA AND/OR VOMITING; Start at 22:30 Acetaminophen (Tylenol Tab) 650 mg Q6H PRN PO PAIN LEVEL 1-3 OR FEVER Last administered on 02/10/17 02:06; Admin Dose 650 MG; Start 02/08/17 at 22:30 Acetaminophen (Tylenol Supp) 650 mg Q6H PRN [place] PAIN LEVEL 1-3 OR FEVER; Start 02/08/17 at 22:30 Acetaminophen/ Hydrocodone Bitart ([place] (5/325)) 1 tab Q6H PRN PO MODERATE PAIN LEVEL 4-6 Last administered on 02/11/17 16:38; Admin Dose 1 TAB; Start at 22:30 Docusate Sodium (Colace) 100 mg Q12H PRN PO CONSTIPATION; Start 02/08/17 at 22: 30 Magnesium Hydroxide (Milk Of Mag) 30 ml DAILY PRN PO CONSTIPATION; Start at 22:30 Bisacodyl (Dulcolax) 5 mg DAILY PRN PO CONSTIPATION; Start 02/08/17 at 22:30 Pantoprazole 40 mg 40 mg DAILY IV Last administered on 02/11/17 08:49; Admin Dose 40 MG; Start 02/09/17 at 09:00 Piperacillin Sod/ Tazobactam Sod (Zosyn 3.375gm/ 100 ml (Pmx)) 100 ml @ 200 mls /hr Q8 IVPB Last administered on 02/11/17 12:44; Admin Dose 200 MLS/HR; Start 02/08/17 at 23:00 Fluoxetine HCl (Prozac) 10 mg DAILY PO Last administered on 02/11/17 08:48; Admin Dose 10 MG; Start 02/09/17 at 11:30 Hydralazine HCl (Apresoline) 10 mg Q8H PRN PO SBP above 160 Last administered on 02/11/17 08:50; Admin Dose 10 MG; Start 02/09/17 at 10:30 Nifedipine (Procardia Xl) 60 mg DAILY PO Last administered on 02/11/17 12:44; Admin Dose 60 MG; Start 02/11/17 at 13:00 Clonidine (Catapres) 0.1 mg Q6H PO ; Start 02/11/17 at 20:00 DINA VIDAL MD Feb 11, 2017 18:16
[2017-02-11] MEDS: IBUPROFEN 600 MG TAB PO PRN (23:09)
[2017-02-12 02:51] VITALS: BP 112/61; RESP 18
[2017-02-12] MEDS: PIPER-TAZO 3.375 GM IV (PMX) 100 ML IVPB SCH ×3 (05:32→23:41)
[2017-02-12 05:58] LABS: BASOPHILS % 0.3 % (0.0-2.0); EOSINOPHILS # 0.2 10^3/ul (0.0-0.5); EOSINOPHILS % 2.5 % (0.0-7.0); HEMATOCRIT 35.6 % (42.0-52.0); LYMPHOCYTES # 1.4 10^3/ul (0.8-2.9); LYMPHOCYTES % 24.4 % (15.0-51.0); MEAN CORPUSCULAR HEMOGLOBIN 24.9 pg (29.0-33.0); MEAN CORPUSCULAR HGB CONC 30.9 g/dl (32.0-37.0); MEAN CORPUSCULAR VOLUME 80.5 fl (82.0-101.0); MEAN PLATELET VOLUME 9.9 fl (7.4-10.4); MONOCYTE # 0.6 10^3/ul (0.3-0.9); MONOCYTES % 10.7 % (0.0-11.0); NEUTROPHIL # 3.6 10^3/ul (1.6-7.5); NEUTROPHILS % 60.7 % (39.0-77.0); PLATELET COUNT 140 10^3/UL (140-415); RED BLOOD COUNT 4.42 10^6/ul (4.70-6.10); RED CELL DISTRIBUTION WIDTH 17.1 % (11.5-14.5); WHITE BLOOD COUNT 5.9 10^3/ul (4.8-10.8)
[2017-02-12 06:25] LABS: ALBUMIN 3.2 g/dl (3.3-4.9); BILIRUBIN,INDIRECT 0.4 mg/dl (0-1.1); BILIRUBIN,TOTAL 0.4 mg/dl (0.2-1.3); CALCIUM 8.5 mg/dl (8.4-10.2); CREATININE 1.13 mg/dl (0.61-1.24); POTASSIUM 4.8 mmol/L (3.5-5.1); TOTAL PROTEIN 6.4 g/dl (6.1-8.1)
[2017-02-12] MEDS: NS + KCL 20 MEQ 1,000 ML IV SCH ×5 (06:25→22:25)
[2017-02-12 08:03] VITALS: BP 113/62; RESP 18
[2017-02-12] MEDS: IBUPROFEN 600 MG TAB PO PRN ×2 (08:21→23:41)
[2017-02-12 09:32] VITALS: BP 131/72; PULSE 88
[2017-02-12] MEDS: FLUOXETINE 10 MG CAP PO SCH (09:36)
[2017-02-12] MEDS: NIFEdipine (XL) 60 MG TAB PO SCH (09:37)
[2017-02-12] MEDS: PANTOPRAZOLE 40 MG INJ IV SCH (09:37)
[2017-02-12] MEDS: HYDROCODONE/APAP (5/325) TAB PO PRN ×2 (13:02→20:17)
[2017-02-12 14:30] VITALS: BP 112/59; RESP 18
--- NOTE | 2017-02-12 16:54 | CONS ---
Date/Time of Note Date/Time of Note DATE: 02/12/17 TIME: 16:50 Assessment/Plan Assessment/Plan Chief Complaint/Hosp Course ID PROGRESS NOTE CURRENT ABX: DAY #4 =>Zosyn (started late PM 02/08) s/p Vanco IV + Cefepime x1 in ED late pm 02/08 24H INTERVAL SUMMARY * Better today, no fever, TMax last night 100.7 with diaphoresis, WBC normalized * He had diarrhea -- improved -- he suspected [facility]; HEP A (-) * (+)GNR BCX=> (+)GNR ESCHERICHIA COLI Urosepsis * URINE CULTURE Final Organism 1 ESCHERICHIA COLI COLONY COUNT >100,000 CFU/ml E COLI M.I.C. RX --------- --- AMPICILLIN <=2 S CEFAZOLIN S CEFOTAXIME S CIPROFLOXACIN <=0.25 S GENTAMICIN <=1 S LEVOFLOXACIN <=0.12 S NITROFURANTOIN <=16 S TOBRAMYCIN <=1 S TRIMETHOPRIM/SULFAMETHOXAZOLE <=20 S Physical examination: 42 yo super morbid obese M, VSS, NAD HEENT: Unremarkable CHEST: Equal chest rise bilaterally without dyspnea on observation CV: Radial pulse RRR ABD: Obese body habitus makes exam difficult : Deferred EXT: Warm, no cyanosis SKIN: No diaphoresis, psoriatic rash areas = chronic ID ASSESSMENT 42 yo super morbid obese M admit with: 1. Acute GNR Sepsis w/fevers 104.8, leukocytosis, tachycardia @168, + lactic acidosis 4.4 => IMPROVING * Low grade temps, WBC normalized, VSS * 02/08 BCx (+)GNR -> E.Coli sensitive to Quinolones 2. Complicated GNR E.Coli UTI/Pyelonephritis ->E.Coli sensitive to Quinolones 3. s/p acute gastroenteritis associated w/diarrhea prior to admission => still having loose stools and headache * [facility] believes [facility] -> will check for hepatitis A and stool cultures, ova/para, C.Diff 4. HTN 5. Gout 6. Psoriasis 7. Hx nicotine dependence 8. Psych/social disorder NOS: (+)Anxiety, s/p recent incarceration (-)HIV/HCV/HBV 02/11/17 PPD screen placed 02/10 late pm CURRENT ABX: CURRENT ABX: DAY #3 =>Zosyn (started late PM 02/08) s/p Vanco IV + Cefepime x1 in ED late pm 02/08 ID RECOMMENDATIONS 1. Patient improving, stool cx still pending, diarrhea improved 2. When cleared for DC home, patient may DC home on high dose Levaquin 750mg po daily to complete 14 days = last day 02/23/16 . . Problems: Consultation Date/Type/Reason Admit Date/Time Feb 08, 2017 at 21:14 Exam/Review of Systems Vital Signs Vitals Vital Signs Date Time Temp Pulse Resp B/P Pulse Ox O2 Delivery O2 Flow Rate FiO2 02/12/17 14:30 98.3 79 18 112/59 94 02/08/17 22:35 Room Air Intake and Output 02/11/17 02/11/17 02/12/17 15:00 23:00 07:00 Intake Total 3055 ml 840 ml Balance 3055 ml 840 ml Results Result Diagram: 02/12/17 0453 02/12/17 0453 Results 24 hrs Laboratory Tests Test 02/12/17 04:53 White Blood Count 5.9 Red Blood Count 4.42 L Hemoglobin 11.0 L Hematocrit 35.6 L Mean Corpuscular Volume 80.5 L Mean Corpuscular Hemoglobin 24.9 L Mean Corpuscular Hemoglobin Concent 30.9 L Red Cell Distribution Width 17.1 H Platelet Count 140 Mean Platelet Volume 9.9 Neutrophils % 60.7 Lymphocytes % 24.4 Monocytes % 10.7 Eosinophils % 2.5 Basophils % 0.3 Nucleated Red Blood Cells % 0.0 Neutrophils # 3.6 Lymphocytes # 1.4 Monocytes # 0.6 Eosinophils # 0.2 Basophils # 0.0 Nucleated Red Blood Cells # 0.0 Sodium Level 141 Potassium Level 4.8 Chloride Level 102 Carbon Dioxide Level 27 Anion Gap 17 H Blood Urea Nitrogen 12 Creatinine 1.13 Glucose Level 85 Calcium Level 8.5 Total Bilirubin 0.4 Direct Bilirubin 0.00 Indirect Bilirubin 0.4 Aspartate Amino Transf (AST/SGOT) 26 Alanine Aminotransferase (ALT/SGPT) 45 Alkaline Phosphatase 84 Total Protein 6.4 Albumin 3.2 L Globulin 3.20 Albumin/Globulin Ratio 1.00 Medications Medications Current Medications Potassium Chloride/Sodium Chloride (NS-KCl 20 Meq) 1,000 ml @ 125 mls/hr Q8H IV Last administered on 02/12/17 08:27; Admin Dose 125 MLS/HR; Start 02/08/17 at 22:25 Ondansetron HCl (Zofran Inj) 4 mg Q6H PRN IV NAUSEA AND/OR VOMITING; Start at 22:30 Acetaminophen (Tylenol Tab) 650 mg Q6H PRN [place] PAIN LEVEL 1-3 OR FEVER Last administered on 02/10/17 02:06; Admin Dose 650 MG; Start 02/08/17 at 22:30 Acetaminophen (Tylenol Supp) 650 mg Q6H PRN [place] PAIN LEVEL 1-3 OR FEVER; Start 02/08/17 at 22:30 Acetaminophen/ Hydrocodone Bitart ([place] (5/325)) 1 tab Q6H PRN PO MODERATE PAIN LEVEL 4-6 Last administered on 02/12/17 13:02; Admin Dose 1 TAB; Start at 22:30 Docusate Sodium (Colace) 100 mg Q12H PRN PO CONSTIPATION; Start 02/08/17 at 22: 30 Magnesium Hydroxide (Milk Of Mag) 30 ml DAILY PRN PO CONSTIPATION; Start at 22:30 Bisacodyl (Dulcolax) 5 mg DAILY PRN PO CONSTIPATION; Start 02/08/17 at 22:30 Pantoprazole 40 mg 40 mg DAILY IV Last administered on 02/12/17 09:37; Admin Dose 40 MG; Start 02/09/17 at 09:00 Piperacillin Sod/ Tazobactam Sod (Zosyn 3.375gm/ 100 ml (Pmx)) 100 ml @ 200 mls /hr Q8 IVPB Last administered on 02/12/17 14:10; Admin Dose 200 MLS/HR; Start 02/08/17 at 23:00 Fluoxetine HCl (Prozac) 10 mg DAILY PO Last administered on 02/12/17 09:36; Admin Dose 10 MG; Start 02/09/17 at 11:30 Hydralazine HCl (Apresoline) 10 mg Q8H PRN PO SBP above 160 Last administered on 02/11/17 08:50; Admin Dose 10 MG; Start 02/09/17 at 10:30 Nifedipine (Procardia Xl) 60 mg DAILY PO Last administered on 02/12/17 09:37; Admin Dose 60 MG; Start 02/11/17 at 13:00 Clonidine (Catapres) 0.1 mg Q6H PO ; Start 02/11/17 at 20:00 Ibuprofen (Motrin) 600 mg BID PRN PO PAIN AND OR ELEVATED TEMP Last administered on 02/12/17 08:21; Admin Dose 600 MG; Start 02/11/17 at 23:00 WAN LARA NP Feb 12, 2017 16:54
[2017-02-12 17:33] LABS: FORTY EIGHT HOUR READING 0 mm (0-9)
[2017-02-12 20:18] VITALS: BP 140/70; PULSE 80
[2017-02-12 20:55] VITALS: BP 120/79; RESP 18
--- NOTE | 2017-02-13 00:10 | PN ---
Date/Time of Note Date/Time of Note DATE: 02/13/17 TIME: 00:09 Assessment/Plan VTE Prophylaxis VTE Prophylaxis Intervention: other Lines/Catheters IV Catheter Type (from Nrsg): Peripheral IV Assessment/Plan Chief Complaint/Hosp Course A/P SEPSIS UTI BACTEREMIA E COLI ANEMIA HTN LOW PLATELET HEADACHE ANEMIA PLAN ANTIBIOTIC CK LABS BP MEDS ANTIBIOTIC Problems: Subjective 24 Hr Interval Summary Constitutional: other (HEADACHE+) Respiratory: no complaints Exam/Review of Systems Vital Signs Vitals Vital Signs Date Time Temp Pulse Resp B/P Pulse Ox O2 Delivery O2 Flow Rate FiO2 02/12/17 20:55 98.8 86 18 120/79 95 Intake and Output 02/12/17 02/12/17 02/13/17 15:00 23:00 07:00 Intake Total 100 ml 1900 ml Balance 100 ml 1900 ml Exam Neck: supple Respiratory: clear to auscultation Cardiovascular: regular rate and rhythm Gastrointestinal: soft Musculoskeletal: nl extremities to inspection Extremities: normal pulses Results Result Diagram: 02/12/17 0453 02/12/17 0453 Results 24 hrs Laboratory Tests Test 02/12/17 04:53 White Blood Count 5.9 Red Blood Count 4.42 L Hemoglobin 11.0 L Hematocrit 35.6 L Mean Corpuscular Volume 80.5 L Mean Corpuscular Hemoglobin 24.9 L Mean Corpuscular Hemoglobin Concent 30.9 L Red Cell Distribution Width 17.1 H Platelet Count 140 Mean Platelet Volume 9.9 Neutrophils % 60.7 Lymphocytes % 24.4 Monocytes % 10.7 Eosinophils % 2.5 Basophils % 0.3 Nucleated Red Blood Cells % 0.0 Neutrophils # 3.6 Lymphocytes # 1.4 Monocytes # 0.6 Eosinophils # 0.2 Basophils # 0.0 Nucleated Red Blood Cells # 0.0 Sodium Level 141 Potassium Level 4.8 Chloride Level 102 Carbon Dioxide Level 27 Anion Gap 17 H Blood Urea Nitrogen 12 Creatinine 1.13 Glucose Level 85 Calcium Level 8.5 Total Bilirubin 0.4 Direct Bilirubin 0.00 Indirect Bilirubin 0.4 Aspartate Amino Transf (AST/SGOT) 26 Alanine Aminotransferase (ALT/SGPT) 45 Alkaline Phosphatase 84 Total Protein 6.4 Albumin 3.2 L Globulin 3.20 Albumin/Globulin Ratio 1.00 Medications Medications Current Medications Potassium Chloride/Sodium Chloride (NS-KCl 20 Meq) 1,000 ml @ 125 mls/hr Q8H IV Last administered on 02/12/17 18:21; Admin Dose 125 MLS/HR; Start 02/08/17 at 22:25 Ondansetron HCl (Zofran Inj) 4 mg Q6H PRN IV NAUSEA AND/OR VOMITING; Start at 22:30 Acetaminophen (Tylenol Tab) 650 mg Q6H PRN PO PAIN LEVEL 1-3 OR FEVER Last administered on 02/10/17 02:06; Admin Dose 650 MG; Start 02/08/17 at 22:30 Acetaminophen (Tylenol Supp) 650 mg Q6H PRN [place] PAIN LEVEL 1-3 OR FEVER; Start 02/08/17 at 22:30 Acetaminophen/ Hydrocodone Bitart ([place] (5/325)) 1 tab Q6H PRN PO MODERATE PAIN LEVEL 4-6 Last administered on 02/12/17 20:17; Admin Dose 1 TAB; Start at 22:30 Docusate Sodium (Colace) 100 mg Q12H PRN PO CONSTIPATION; Start 02/08/17 at 22: 30 Magnesium Hydroxide (Milk Of Mag) 30 ml DAILY PRN PO CONSTIPATION; Start at 22:30 Bisacodyl (Dulcolax) 5 mg DAILY PRN PO CONSTIPATION; Start 02/08/17 at 22:30 Pantoprazole 40 mg 40 mg DAILY IV Last administered on 02/12/17 09:37; Admin Dose 40 MG; Start 02/09/17 at 09:00 Piperacillin Sod/ Tazobactam Sod (Zosyn 3.375gm/ 100 ml (Pmx)) 100 ml @ 200 mls /hr Q8 IVPB Last administered on 02/12/17 23:41; Admin Dose 200 MLS/HR; Start 02/08/17 at 23:00 Fluoxetine HCl (Prozac) 10 mg DAILY PO Last administered on 02/12/17 09:36; Admin Dose 10 MG; Start 02/09/17 at 11:30 Hydralazine HCl (Apresoline) 10 mg Q8H PRN PO SBP above 160 Last administered on 02/11/17 08:50; Admin Dose 10 MG; Start 02/09/17 at 10:30 Nifedipine (Procardia Xl) 60 mg DAILY PO Last administered on 8/2/17at 09:37; Admin Dose 60 MG; Start 02/11/17 at 13:00 Clonidine (Catapres) 0.1 mg Q6H PO ; Start 02/11/17 at 20:00 Ibuprofen (Motrin) 600 mg BID PRN PO PAIN AND OR ELEVATED TEMP Last administered on 02/12/17t 23:41; Admin Dose 600 MG; Start 02/11/17 at 23:00 DINA VIDAL MD Feb 13, 2017 00:10
[2017-02-13 00:21] VITALS: BP 148/80; PULSE 81
[2017-02-13 02:00] VITALS: BP 118/71; RESP 19
[2017-02-13] MEDS: NS + KCL 20 MEQ 1,000 ML IV SCH ×4 (04:02→22:25)
[2017-02-13] MEDS: PIPER-TAZO 3.375 GM IV (PMX) 100 ML IVPB SCH ×2 (05:46→14:56)
[2017-02-13 07:50] VITALS: BP 119/65; RESP 16
[2017-02-13] MEDS: FLUOXETINE 10 MG CAP PO SCH (09:00)
[2017-02-13] MEDS: PANTOPRAZOLE 40 MG INJ IV SCH (09:19)
[2017-02-13] MEDS: NIFEdipine (XL) 60 MG TAB PO SCH (09:19)
[2017-02-13] MEDS: IBUPROFEN 600 MG TAB PO PRN (09:28)
[2017-02-13 14:00] VITALS: BP 117/62; PULSE 86; RESP 16
[2017-02-13] MEDS: HYDROCODONE/APAP (5/325) TAB PO PRN ×2 (15:03→21:29)
--- NOTE | 2017-02-13 15:15 | CONS ---
Date/Time of Note Date/Time of Note DATE: 02/13/17 TIME: 15:05 Assessment/Plan Assessment/Plan Chief Complaint/Hosp Course ID PROGRESS NOTE CURRENT ABX: DAY #5 =>Zosyn (started late PM 02/08) s/p Vanco IV + Cefepime x1 in ED late pm 02/08 24H INTERVAL SUMMARY * Continues to improve -- no new complaints, no fever today -- Tmax yesterday 99.6, WBC normalized * 02/11/17 -> repeat BCx (-) * 02/08 (+)GNR BCX=> (+)GNR ESCHERICHIA COLI Urosepsis * URINE CULTURE Final Organism 1 ESCHERICHIA COLI COLONY COUNT >100,000 CFU/ml E COLI M.I.C. RX --------- --- AMPICILLIN <=2 S CEFAZOLIN S CEFOTAXIME S CIPROFLOXACIN <=0.25 S GENTAMICIN <=1 S LEVOFLOXACIN <=0.12 S NITROFURANTOIN <=16 S TOBRAMYCIN <=1 S TRIMETHOPRIM/SULFAMETHOXAZOLE <=20 S Physical examination: 42 yo super morbid obese M, VSS, NAD HEENT: Unremarkable CHEST: Equal chest rise bilaterally without dyspnea on observation CV: Radial pulse RRR ABD: Obese body habitus makes exam difficult : Deferred EXT: Warm, no cyanosis SKIN: No diaphoresis, psoriatic rash areas = chronic ID ASSESSMENT 42 yo super morbid obese M admit with: 1. Acute GNR Sepsis w/fevers 104.8, leukocytosis, tachycardia @168, + lactic acidosis 4.4 => IMPROVING * Low grade temps, WBC normalized, VSS * 02/08 BCx (+)GNR -> E.Coli sensitive to Quinolones * 02/11 BCx (-) preliminary 2. Complicated GNR E.Coli UTI/Pyelonephritis ->E.Coli sensitive to Quinolones = > IMPROVING 3. s/p acute gastroenteritis associated w/diarrhea prior to admission => still having loose stools and headache * He believes he ate something bad in care home ->Hep A (-) => stool cx not sent ? => RESOLVED 4. HTN 5. Gout 6. Psoriasis => Chronic 7. Hx nicotine dependence 8. Psych/social disorder NOS: (+)Anxiety, s/p recent incarceration (-)HIV/HCV/HBV 02/11/17 (-)HEPA (-)PPD screen CURRENT ABX: => Taper ABX to Levaquin 750mg IV #1 TOTAL ABX: DAY #4 =>Zosyn => dc 02/13/17 s/p Vanco IV + Cefepime x1 in ED late pm 02/08 ID RECOMMENDATIONS 1. Patient improving -> will taper ABX to Levaquin IV 2. When cleared for DC home, patient may DC home on high dose Levaquin 750mg po daily to complete 14 days = last day 02/24/16 . . . Problems: Consultation Date/Type/Reason Admit Date/Time Feb 08, 2017 at 21:14 Exam/Review of Systems Vital Signs Vitals Vital Signs Date Time Temp Pulse Resp B/P Pulse Ox O2 Delivery O2 Flow Rate FiO2 02/13/17 07:50 97.9 81 16 119/65 95 Intake and Output 02/12/17 02/12/17 02/13/17 15:00 23:00 07:00 Intake Total 100 ml 1900 ml 2055 ml Balance 100 ml 1900 ml 2055 ml Results Result Diagram: 02/12/17 0453 02/12/17 0453 Medications Medications Current Medications Potassium Chloride/Sodium Chloride (NS-KCl 20 Meq) 1,000 ml @ 125 mls/hr Q8H IV Last administered on 02/13/17 12:55; Admin Dose 125 MLS/HR; Start 02/08/17 at 22:25 Ondansetron HCl (Zofran Inj) 4 mg Q6H PRN IV NAUSEA AND/OR VOMITING; Start at 22:30 Acetaminophen (Tylenol Tab) 650 mg Q6H PRN PO PAIN LEVEL 1-3 OR FEVER Last administered on 02/10/17 02:06; Admin Dose 650 MG; Start 02/08/17 at 22:30 Acetaminophen (Tylenol Supp) 650 mg Q6H PRN [place] PAIN LEVEL 1-3 OR FEVER; Start 02/08/17 at 22:30 Acetaminophen/ Hydrocodone Bitart ([place] (5/325)) 1 tab Q6H PRN PO MODERATE PAIN LEVEL 4-6 Last administered on 02/13/17 15:03; Admin Dose 1 TAB; Start at 22:30 Docusate Sodium (Colace) 100 mg Q12H PRN PO CONSTIPATION; Start 02/08/17 at 22: 30 Magnesium Hydroxide (Milk Of Mag) 30 ml DAILY PRN PO CONSTIPATION; Start at 22:30 Bisacodyl (Dulcolax) 5 mg DAILY PRN PO CONSTIPATION; Start 02/08/17 at 22:30 Pantoprazole 40 mg 40 mg DAILY IV Last administered on 02/13/17 09:19; Admin Dose 40 MG; Start 02/09/17 at 09:00 Piperacillin Sod/ Tazobactam Sod (Zosyn 3.375gm/ 100 ml (Pmx)) 100 ml @ 200 mls /hr Q8 IVPB Last administered on 02/13/17 14:56; Admin Dose 200 MLS/HR; Start 02/08/17 at 23:00 Fluoxetine HCl (Prozac) 10 mg DAILY PO Last administered on 02/12/17 09:36; Admin Dose 10 MG; Start 02/09/17 at 11:30 Hydralazine HCl (Apresoline) 10 mg Q8H PRN PO SBP above 160 Last administered on 02/11/17 08:50; Admin Dose 10 MG; Start 02/09/17 at 10:30 Nifedipine (Procardia Xl) 60 mg DAILY PO Last administered on 02/13/17 09:19; Admin Dose 60 MG; Start 02/11/17 at 13:00 Clonidine (Catapres) 0.1 mg Q6H PO ; Start 02/11/17 at 20:00 Ibuprofen (Motrin) 600 mg BID PRN PO PAIN AND OR ELEVATED TEMP Last administered on 02/13/17 09:28; Admin Dose 600 MG; Start 02/11/17 at 23:00 WAN LARA NP Feb 13, 2017 15:15
[2017-02-13] MEDS ORDERED: LEVOFLOXACIN 750MG/D5W (PMX) 150 ML IVPB SCH (16:30)
--- NOTE | 2017-02-13 18:58 | PDOCDIS ---
Discharge Instructions CONDITION Patient Condition: Stable HOME CARE INSTRUCTIONS: Diet Instructions: Low Fat /Cholesterol ACTIVITY: Activity Restrictions: Slowly Increase Activity FOLLOW UP/APPOINTMENTS Follow-up Plan f/u own pcp 1 wk DINA VIDAL MD Feb 13, 2017 18:58
[2017-02-13] MEDS ORDERED: DOCU-216 PO (19:00)
[2017-02-13] MEDS ORDERED: IBUP-1542 PO (19:00)
[2017-02-13] MEDS ORDERED: BISA5TAB6 PO (19:00)
[2017-02-13] MEDS ORDERED: FLUO10CA17 PO (19:00)
[2017-02-13] MEDS ORDERED: NIFE60TA7 PO (19:00)
[2017-02-13] MEDS ORDERED: LEVO500T72 PO (19:00)
--- NOTE | 2017-02-13 19:16 | PN ---
Date/Time of Note Date/Time of Note DATE: 02/13/17 TIME: 19:12 Assessment/Plan VTE Prophylaxis VTE Prophylaxis Intervention: other Lines/Catheters IV Catheter Type (from Nrsg): Peripheral IV Urinary Cath still in place: No Assessment/Plan Chief Complaint/Hosp Course A/P SEPSIS UTI BACTEREMIA E COLI ANEMIA HTN LOW PLATELET HEADACHE ANEMIA PLAN ANTIBIOTIC CK LABS BP MEDS ANTIBIOTIC home Problems: Subjective 24 Hr Interval Summary Respiratory: no complaints Cardiovascular: no complaints Exam/Review of Systems Vital Signs Vitals Vital Signs Date Time Temp Pulse Resp B/P Pulse Ox O2 Delivery O2 Flow Rate FiO2 02/13/17 14:00 98.2 86 16 117/62 93 Intake and Output 02/12/17 02/12/17 02/13/17 15:00 23:00 07:00 Intake Total 100 ml 1900 ml 2055 ml Balance 100 ml 1900 ml 2055 ml Exam Respiratory: clear to auscultation Cardiovascular: regular rate and rhythm Gastrointestinal: soft Musculoskeletal: nl extremities to inspection Results Result Diagram: 02/12/17 0453 02/12/17 0453 Medications Medications Current Medications Potassium Chloride/Sodium Chloride (NS-KCl 20 Meq) 1,000 ml @ 125 mls/hr Q8H IV Last administered on 02/13/17 12:55; Admin Dose 125 MLS/HR; Start 02/08/17 at 22:25 Ondansetron HCl (Zofran Inj) 4 mg Q6H PRN IV NAUSEA AND/OR VOMITING; Start at 22:30 Acetaminophen (Tylenol Tab) 650 mg Q6H PRN PO PAIN LEVEL 1-3 OR FEVER Last administered on 02/10/17 02:06; Admin Dose 650 MG; Start 02/08/17 at 22:30 Acetaminophen (Tylenol Supp) 650 mg Q6H PRN IA PAIN LEVEL 1-3 OR FEVER; Start 02/08/17 at 22:30 Acetaminophen/ Hydrocodone Bitart ([place] (5/325)) 1 tab Q6H PRN PO MODERATE PAIN LEVEL 4-6 Last administered on 02/13/17 15:03; Admin Dose 1 TAB; Start at 22:30 Docusate Sodium (Colace) 100 mg Q12H PRN PO CONSTIPATION; Start 02/08/17 at 22: 30 Magnesium Hydroxide (Milk Of Mag) 30 ml DAILY PRN PO CONSTIPATION; Start at 22:30 Bisacodyl (Dulcolax) 5 mg DAILY PRN PO CONSTIPATION; Start 02/08/17 at 22:30 Pantoprazole (Protonix Iv) 40 mg DAILY IV Last administered on 02/13/17 09:19; Admin Dose 40 MG; Start 02/09/17 at 09:00 Fluoxetine HCl (Prozac) 10 mg DAILY PO Last administered on 02/12/17 09:36; Admin Dose 10 MG; Start 02/09/17 at 11:30 Hydralazine HCl (Apresoline) 10 mg Q8H PRN PO SBP above 160 Last administered on 02/11/17 08:50; Admin Dose 10 MG; Start 02/09/17 at 10:30 Nifedipine (Procardia Xl) 60 mg DAILY PO Last administered on 02/13/17 09:19; Admin Dose 60 MG; Start 02/11/17 at 13:00 Clonidine (Catapres) 0.1 mg Q6H PO ; Start 02/11/17 at 20:00 Ibuprofen 600 mg 600 mg BID PRN PO PAIN AND OR ELEVATED TEMP Last administered on 02/13/17 09:28; Admin Dose 600 MG; Start 02/11/17 at 23:00 Levofloxacin/ Dextrose (Levaquin 750 Mg/ D5W 150 ml (Pmx)) 150 ml @ 100 mls/hr Q24H IVPB Last administered on 02/13/17 16:52; Admin Dose 100 MLS/HR; Start 02/13/17 at 16:30; Stop 02/23/17 at 16:29 DINA VIDAL MD Feb 13, 2017 19:16
[2017-02-13 20:00] VITALS: BP 111/61; RESP 19
[2017-02-14] MEDS: IBUPROFEN 600 MG TAB PO PRN (02:36)
[2017-02-14] MEDS: NS + KCL 20 MEQ 1,000 ML IV SCH (02:36)
[2017-02-14 07:50] VITALS: BP 152/72; RESP 16
[2017-02-14] MEDS: PANTOPRAZOLE 40 MG INJ IV SCH (08:08)
[2017-02-14] MEDS: NIFEdipine (XL) 60 MG TAB PO SCH (08:09)
[2017-02-14] MEDS: HYDROCODONE/APAP (5/325) TAB PO PRN (08:09)
[2017-02-14] MEDS: FLUOXETINE 10 MG CAP PO SCH (08:09)
== END 2017-02-14 11:15 | disposition home or self-care (01) | DRG 872 ==
LOC: E/R 18:49 → MS4 21:14 → PP2 02-11 19:26
PROVIDERS: ADMIT Internal Medicine Nephrology; ATTEND Internal Medicine Nephrology
DX: A41.51 Sepsis due to Escherichia coli [E. coli] (principal); Z68.42 Body mass index [BMI] 45.0-49.9, adult; I10 Essential (primary) hypertension; N39.0 Urinary tract infection, site not specified; N12 Tubulo-interstitial nephritis, not specified as acute or chronic; B96.20 Unspecified Escherichia coli [E. coli] as the cause of diseases classified elsewhere; E66.01 Morbid (severe) obesity due to excess calories; M1A.9XX0 Chronic gout, unspecified, without tophus (tophi); L40.9 Psoriasis, unspecified; F41.9 Anxiety disorder, unspecified; R19.7 Diarrhea, unspecified; R51 Headache
CPT/HCPCS: 36415; 71010; 80048; 80053; 81001; 83605; 84484; 85025; 85610; 85730; 86580; 86703; 86704; 86709; 86803; 87040; 87086; 87340; 93005; 96374; 96375; C9113; J0692; J1956; J2543; J3370; J3480; J7030

== ENCOUNTER 2017-06-06 21:21 | Emergency (ER) | payer OTHER ==
[~2017-06-06] VITALS: Ht 177.8 cm; Wt 138.6 kg
[~2017-06-06 21:21] MED LIST: BISA5TAB6 PO; DOCU-216 PO; FLUO10CA17 PO; IBUP-1542 PO; LEVO500T72 PO; NIFE60TA7 PO
[2017-06-06 21:41] VITALS: Ht 177.8 cm; Wt 138.6 kg
[2017-06-07 00:41] LABS: BASOPHIL # 0.1 10^3/ul (0.0-0.1); BASOPHILS % 0.6 % (0.0-2.0); EOSINOPHILS # 0.3 10^3/ul (0.0-0.5); EOSINOPHILS % 2.4 % (0.0-7.0); HEMATOCRIT 39.2 % (42.0-52.0); HEMOGLOBIN 11.8 g/dl (14.0-18.0); LYMPHOCYTES # 1.2 10^3/ul (0.8-2.9); LYMPHOCYTES % 10.7 % (15.0-51.0); MEAN CORPUSCULAR HEMOGLOBIN 26.3 pg (29.0-33.0); MEAN CORPUSCULAR HGB CONC 30.1 g/dl (32.0-37.0); MEAN CORPUSCULAR VOLUME 87.5 fl (82.0-101.0); MONOCYTE # 0.4 10^3/ul (0.3-0.9); MONOCYTES % 3.6 % (0.0-11.0); NEUTROPHIL # 9.4 10^3/ul (1.6-7.5); PLATELET COUNT 375 10^3/UL (140-415); RED BLOOD COUNT 4.48 10^6/ul (4.70-6.10); RED CELL DISTRIBUTION WIDTH 15.2 % (11.5-14.5); WHITE BLOOD COUNT 11.5 10^3/ul (4.8-10.8)
[2017-06-07 01:02] LABS: ALBUMIN 3.8 g/dl (3.3-4.9); ALBUMIN/GLOBULIN RATIO 0.92; BILIRUBIN,INDIRECT 0.2 mg/dl (0-1.1); BILIRUBIN,TOTAL 0.2 mg/dl (0.2-1.3); CALCIUM 9.7 mg/dl (8.4-10.2); CREATININE 1.19 mg/dl (0.61-1.24); POTASSIUM 5.2 mmol/L (3.5-5.1); TOTAL PROTEIN 7.9 g/dl (6.1-8.1)
[2017-06-07 01:22] LABS: ADD UMIC NO; UR ASCORBIC ACID NEGATIVE (NEGATIVE); UR BILIRUBIN (Dip) NEGATIVE (NEGATIVE); UR BLOOD (Dip) NEGATIVE (NEGATIVE); UR CLARITY CLEAR (CLEAR); UR COLOR YELLOW (YELLOW); UR GLUCOSE (Dip) NEGATIVE (NEGATIVE); UR KETONES (Dip) NEGATIVE (NEGATIVE); UR LEUKOCYTE ESTERASE (Dip) NEGATIVE Leu/ul (NEGATIVE); UR NITRITE (Dip) NEGATIVE (NEGATIVE); UR SPECIFIC GRAVITY (Dip) 1.013 (1.003-1.030); UR TOTAL PROTEIN (Dip) NEGATIVE (NEGATIVE); UR UROBILINOGEN (Dip) 1+ mg/dL (NEGATIVE)
[2017-06-07] MEDS ORDERED: NAPR-260 PO (01:33)
[2017-06-07] MEDS ORDERED: HYDR-906 PO (01:33)
[2017-06-07] MEDS ORDERED: CYCL-319 PO (01:33)
[2017-06-07 01:56] VITALS: BP 142/77; PULSE 90; RESP 18; TEMP 98.3
--- NOTE | 2017-06-07 02:18 | ERD ---
ER Documentation Chief Complaint Chief Complaint low back pain x 4 days, denies injury HPI 42-year-old male complaining of lower back pain 4 days. Denies acute injury. Denies hematuria or urinary frequency. Denies fever. Patient states the back pain is worse with rotational movement and bending over. He has been taking prednisone and naproxen. Patient states the pain is on the bilateral and no midline tenderness. ROS All systems reviewed and are negative except as per history of present illness. Medications Home Meds Active Scripts Cyclobenzaprine Hcl* (Cyclobenzaprine Hcl*) 10 Mg Tablet, 10 MG PO TID, #15 TAB Prov:FAYE VAUGHAN PA-C 06/07/17 Naproxen* (Naprosyn*) 500 Mg Tablet, 500 MG PO BID Y for PAIN AND/OR INFLAMMATION, #30 TAB Prov:FAYE VAUGHAN PA-C 06/07/17 Hydrocodone/Acetaminophen ([place] 5-325 Tablet) 1 Each Tablet, 1 TAB PO Q6H Y for PAIN, #7 TAB Prov:FAYE VAUGHAN PA-C 06/07/17 Levofloxacin* (Levaquin*) 500 Mg Tablet, 500 MG PO DAILY, #10 TAB Prov:DINA VIDAL MD 02/13/17 Docusate Sodium (Dok) 100 Mg Capsule, 100 MG PO Q12H Y for CONSTIPATION for 28 Days, CAP Prov:DINA VIDAL MD 02/13/17 Bisacodyl* (Bisacodyl*) 5 Mg Tablet.dr, 5 MG PO DAILY Y for CONSTIPATION for 14 Days, #30 Prov:DINA VIDAL MD 02/13/17 Ibuprofen* (Ibuprofen*) 600 Mg Tablet, 600 MG PO BID Y for PAIN AND OR ELEVATED TEMP for 14 Days, TAB Prov:DINA VIDAL MD 02/13/17 Fluoxetine Hcl* (Fluoxetine Hcl*) 10 Mg Capsule, 10 MG PO DAILY for 28 Days, CAP Prov:DINA VIDAL MD 02/13/17 Nifedipine (Afeditab CR) 60 Mg Tablet.sa, 60 MG PO DAILY for 28 Days Prov:DINA VIDAL MD 02/13/17 Allergies Allergies: Coded Allergies: No Known Allergy (Unverified , 02/08/17) PMhx/Soc History of Surgery: No Anesthesia Reaction: No Hx Neurological Disorder: No Hx Respiratory Disorders: No Hx Cardiac Disorders: Yes Hx Psychiatric Problems: No Hx Miscellaneous Medical Probl: Yes (Psoriatic gouty arthritis) Hx Alcohol Use: No Hx Substance Use: Yes Hx Tobacco Use: No Smoking Status: Former smoker Physical Exam Vitals Vital Signs Date Time Temp Pulse Resp B/P Pulse Ox O2 Delivery O2 Flow Rate FiO2 06/07/17 01:56 98.3 90 18 142/77 97 Room Air 06/06/17 21:41 98.7 101 20 147/80 98 Physical Exam GENERAL: The patient is well-appearing, well-nourished, in no acute distress CHEST: Clear to auscultation bilaterally. There are no rales, wheezes or rhonchi. HEART: Regular rate and rhythm. No murmurs, clicks, rubs or gallops. No S3 or S4. ABDOMEN:Soft, nontender and nondistended. Good bowel sounds. No rebound or guarding. No gross peritonitis. No gross organomegaly or masses. No Cruz sign or McBurney point tenderness. BACK: No midline or flank tenderness. Palpation over mid thoracic back along the paraspinous muscles. Reproducible tenderness. EXTREMITIES: Equal pulses bilaterally. There is no peripheral clubbing, cyanosis or edema. No focal swelling or erythema. Full range of motion. Grossly neurovascularly intact. NEUROLOGIC: Alert and oriented. Cranial nerves II through XII intact. Motor strength in all 4 extremities with 5 out of 5 strength. Sensation grossly intact. Normal speech and gait. Babinski negative. DTR 2+ throughout. SKIN: Extensive erythematous plaques all over the body. No open sores. Result Diagram: 06/07/170 06/07/17 0010 Results 24 hrs Laboratory Tests Test 06/07/17 00:10 White Blood Count 11.510^3/ul Red Blood Count 4.4810^6/ul Hemoglobin 11.8g/dl Hematocrit 39.2% Mean Corpuscular Volume 87.5fl Mean Corpuscular Hemoglobin 26.3pg Mean Corpuscular Hemoglobin Concent 30.1g/dl Red Cell Distribution Width 15.2% Platelet Count 30616^3/UL Mean Platelet Volume 10.0fl Neutrophils % 82.0% Lymphocytes % 10.7% Monocytes % 3.6% Eosinophils % 2.4% Basophils % 0.6% Nucleated Red Blood Cells % 0.0/100WBC Neutrophils # 9.410^3/ul Lymphocytes # 1.210^3/ul Monocytes # 0.410^3/ul Eosinophils # 0.310^3/ul Basophils # 0.110^3/ul Nucleated Red Blood Cells # 0.010^3/ul Urine Color YELLOW Urine Clarity CLEAR Urine pH 7.0 Urine Specific [place] 1.013 Urine Ketones NEGATIVEmg/dL Urine Nitrite NEGATIVEmg/dL Urine Bilirubin NEGATIVEmg/dL Urine Urobilinogen 1+mg/dL Urine Leukocyte Esterase NEGATIVELeu/ul Urine Hemoglobin NEGATIVEmg/dL Urine Glucose NEGATIVEmg/dL Urine Total Protein NEGATIVEmg/dl Sodium Level 142mmol/L Potassium Level 5.2mmol/L Chloride Level 107mmol/L Carbon Dioxide Level 27mmol/L Anion Gap 13 Blood Urea Nitrogen 14mg/dl Creatinine 1.19mg/dl Glucose Level 118mg/dl Calcium Level 9.7mg/dl Total Bilirubin 0.2mg/dl Direct Bilirubin 0.00mg/dl Indirect Bilirubin 0.2mg/dl Aspartate Amino Transf (AST/SGOT) 23IU/L Alanine Aminotransferase (ALT/SGPT) 33IU/L Alkaline Phosphatase 86IU/L Creatine Kinase 72IU/L Total Protein 7.9g/dl Albumin 3.8g/dl Globulin 4.10g/dl Albumin/Globulin Ratio 0.92 Lipase 128U/L Procedures/MDM 42-year-old male complaining of back pain. I have low suspicion for kidney abnormalities patient's blood work is within normal limits. A low suspicion for urinary tract infection or pyelonephritis his urine is within normal limits. Patient's pain is likely associated with musculoskeletal strain as his pain is worse with rotational movement and bending. She is discharged with strict ER precautions and recommended to follow-up with primary care within 1-2 days for close evaluation. Patient is told if symptoms change or worsen to return the emergency room immediately. All questions answered at discharge. Departure Diagnosis: Primary Impression: Back pain Condition: Stable Patient Instructions: Back Pain (Acute Or Chronic) Referrals: COMMUNITY CLINICS YOU HAVE RECEIVED A MEDICAL SCREENING EXAM AND THE RESULTS INDICATE THAT YOU DO NOT HAVE A CONDITION THAT REQUIRES URGENT TREATMENT IN THE EMERGENCY DEPARTMENT. FURTHER EVALUATION AND TREATMENT OF YOUR CONDITION CAN WAIT UNTIL YOU ARE SEEN IN YOUR DOCTORS OFFICE WITHIN THE NEXT 1-2 DAYS. IT IS YOUR RESPONSIBILITY TO MAKE AN APPOINTMENT FOR FOLOW-UP CARE. IF YOU HAVE A PRIMARY DOCTOR --you should call your primary doctor and schedule an appointment IF YOU DO NOT HAVE A PRIMARY DOCTOR YOU CAN CALL OUR PHYSICIAN REFERRAL HOTLINE AT IF YOU CAN NOT AFFORD TO SEE A PHYSICIAN YOU CAN CHOSE FROM THE FOLLOWING [facility] CLINICS [facility] [address] [facility] [address] [facility] [facility] [address] [facility] [address] [facility] [address] [facility] [facility] [address] Additional Instructions: FOLLOW UP WITH YOUR PRIMARY CARE PHYSICIAN TOMORROW.Return to this facility if you are not improving as expected. FAYE VAUGHAN PA-C Jun 07, 2017 02:18
== END 2017-06-07 01:58 | disposition home or self-care (01) ==
LOC: FTE 21:21
DX: M54.6 Pain in thoracic spine (principal); Z87.891 Personal history of nicotine dependence
CPT/HCPCS: 36415; 80053; 81003; 82550; 83690; 85025; Z7502; 99284